=== PATIENT | male | born 1950 | race Caucasian/White ===

== ENCOUNTER 2019-12-17 15:14 | Inpatient (IN) | payer OTHER ==
[2019-12-17] VITALS: BP_SYST 175
[~2019-12-17] VITALS: Ht 172.7 cm; Wt 90.3 kg
[2019-12-17 15:40] VITALS: BP_SYST 141
[2019-12-17] MEDS ORDERED: MORPHINE 4 MG/ML INJ. SYRINGE IVP ONE (15:45)
[2019-12-17] MEDS ORDERED: THIAMINE HCL 100 MG in NS 50 ML IV ONE (15:45)
[2019-12-17] MEDS ORDERED: FOLIC ACID 5 MG/ML VIAL IV ONE (15:45)
[2019-12-17] MEDS ORDERED: NACL 0.9% 1,000 ML IV ONE ×2 (15:45→17:00)
--- NOTE | 2019-12-17 15:45 | NUR ---
Patient to ER bed 6 to gown for evaluation. Side rails up. Report given to Leatha CASTELLANO.
--- NOTE | 2019-12-17 15:46 | NUR ---
# 20 gauge angiocath placed to left AC. Use of asceptic technique. Opsite placed over site. Blood return noted. Blood for lab drawn from site. Flushed with 10 cc of normal saline. No evidence of infiltration noted. Patient tolerated well.
--- NOTE | 2019-12-17 15:46 | NUR ---
Patient presents to ER C/O right thigh pain. Patent A&Ox3, BIB family with c/o alcohol abuse, skin pink and warm, denies N/V/D pain 07/11. Per niece, patient fell Saturday in [place] and arrive to [place] today, pt unable to abuses alcohol; pt has hx of DM &HTN.
--- NOTE | 2019-12-17 15:50 | NUR ---
MICHAEL Bojorquez at bedside examining patient.
--- NOTE | 2019-12-17 16:00 | NUR ---
Per family pt noncomplaint w/meds and no f/u with PMD x 4yrs.
[2019-12-17 16:05] LABS: BASOPHILS % (AUTO) 0.7 % (0.0-2.0); EOSINOPHILS # (AUTO) 0.2 K/uL (0.0-0.4); EOSINOPHILS % (AUTO) 3.6 % (0.0-4.0); HEMATOCRIT 42.3 % (36-54); HEMOGLOBIN 14.5 g/dL (14.0-18.0); LYMPHOCYTES # (AUTO) 1.6 K/uL (1.0-5.5); LYMPHOCYTES % (AUTO) 29.6 % (20.5-51.5); MEAN CORPUSCULAR HEMOGLOBIN 32 pg (27-31); MEAN CORPUSCULAR HGB CONC 34 % (32-36); MEAN CORPUSCULAR VOLUME 93 fL (79.0-98.0); MONOCYTES # (AUTO) 0.5 K/uL (0.0-1.0); MONOCYTES % (AUTO) 8.6 % (1.7-9.3); NEUTROPHILS # (AUTO) 3.1 K/uL (1.8-7.7); NEUTROPHILS % (AUTO) 57.5 % (40.0-70.0); PLATELET COUNT (AUTO) 174 K/uL (130-430); RED BLOOD CELL COUNT(AUTO) 4.53 MIL/uL (4.2-6.2); RED CELL DISTRIBUTION WIDTH 14.8 % (9.0-15.0); WHITE BLOOD COUNT (AUTO) 5.4 K/uL (4.8-10.8)
[2019-12-17 16:22] LABS: ANION GAP 11 (5-15); CALCIUM 8.6 mg/dL (8.4-11.0); CHLORIDE 102 mmol/L (98-107); CREATININE 1.19 mg/dL (0.55-1.30); GLUCOSE 140 mg/dL (70-99); POTASSIUM 3.6 mmol/L (3.5-5.1); SODIUM SERUM 138 mmol/L (136-145); UREA NITROGEN, BLOOD 40 mg/dL (8-21)
[2019-12-17] MEDS ORDERED: THIAMINE HCL 100 MG/ML VIAL ONE (16:23)
[2019-12-17 16:29] LABS: ALANINE AMINOTRANSFERASE 35 U/L (12-78); ALBUMIN 3.4 g/dL (3.4-4.8); ASPARTATE AMINOTRANSFERASE 34 U/L (10-37); PHOSPHORUS 3.7 mg/dL (2.7-4.5)
[2019-12-17 16:31] LABS: PROTHROMBIN TIME 10.3 SECS (9.5-12.5)
[2019-12-17 17:00] LABS: ALCOHOL, BLOOD < 3 mg/dL (<10)
--- NOTE | 2019-12-17 17:25 | NUR ---
Patient will be admitted to care of DR FORD. Admitted to TELE unit. Will go to room 114A. Belongings list completed. Complete and up to date summary report printed. SBAR report to be given at bedside with opportunity for questions. Transfer to TELE via ACLS protocol. Licensed nurse present. IV present no signs or symptoms of infiltration.
[2019-12-17 17:35] VITALS: BP_SYST 155
--- NOTE | 2019-12-17 17:35 | NUR ---
admission: admitted from er on a gurney with the diagnosis of generalized weakness, dehydration. Accompanied by niece. Patient is normally oriented, but today niece said " he seems to be out of it." Oriented to room routine. Call light within reach.
[2019-12-17 18:07] LABS: BARBITURATE, URINE NEGATIVE (NEG <=200); BENZODIAZEPINE, URINE NEGATIVE (NEG <=150); CANNABINOID, URINE NEGATIVE (NEG <=50); COCAINE, URINE NEGATIVE (NEG <=150); METHAMPHETAMINES SCREEN,URINE NEGATIVE (NEG <=500); OPIATE, URINE NEGATIVE (NEG <=100); PHENCYCLIDINE SCREEN,URINE NEGATIVE (NEG <=25); UR TRICYCLIC ANTIDEPRESSANTS NEGATIVE (NEG <=300); URINE AMPHETAMINE NEGATIVE (NEG <=500); URINE METHADONE NEGATIVE (NEG <=200); URINE OXYCODONE SCREEN NEGATIVE (NEG <=100); URINE PROPOXYPHENE SCREEN NEGATIVE (NEG <=300)
[2019-12-17] MEDS ORDERED: FLU VACC TS2019(65UP)/MF59C/PF 45 MCG/0.5 ML SYRINGE I.M. PRN (18:15)
--- NOTE | 2019-12-17 18:38 | NUR ---
Closing note patient resting in bed at this time, no complaints of pain. IV patent, intact, and infusing fluids as ordered. No adverse side effects noted. No infiltration noted. On safety and aspiration precautions, HOB kept elevated, bed alarm on, 3 side rails up, call light within reach. patient in stable condition. Family at bedside. All needs met.
--- NOTE | 2019-12-17 19:20 | NUR ---
INITIAL ASSESSMENT PATIENT IS LAYING IN BED AND STABLE. NO S/S OF RESPIRATORY DISTRESS NOTED. FAMILY IS BY BEDSIDE. PLAN OF CARE WAS DISCUSSED WITH FAMILY AND PATIENT AT THIS TIME. PATIENT SUCCESSFULLY DEMONSTRATES USAGE OF CALL LIGHT AT THIS TIME. BED IS LOCKED, ALARMED, AND AT THE LOWEST POSITION. FALL, SAFETY, ASPIRATION, AND RESPIRATORY PRECAUTIONS WILL BE IN PLACE THROUGHOUT THE NIGHT. WILL CONTINUE TO MONITOR.
[2019-12-17 19:28] LABS: BILIRUBIN,URINE 1+ (NEGATIVE); BLOOD, URINE NEGATIVE (NEGATIVE); CLARITY/URINE SLIGHTLY HAZY (CLEAR); COLOR,URINE YELLOW (YELLOW); GLUCOSE,URINE NEGATIVE (NEGATIVE); KETONES,URINE NEGATIVE (NEGATIVE); LEUKOCYTE ESTERASE ,URINE NEGATIVE (NEGATIVE); NITRITE, URINE NEGATIVE (NEGATIVE); PH,URINE 5.5 (5.0-8.0); PROTEIN URINE 2+ (NEGATIVE)
[2019-12-17 19:29] LABS: UROBILINOGEN,URINE 0.2 (0.2-1.0)
[2019-12-17 19:33] LABS: BACTERIA,URINE FEW /HPF (None Seen); RBC,URINE NONE SEEN /HPF (0-3); WBC,URINE 0-3 /HPF (0-3)
[2019-12-17 19:34] LABS: MUCUS,URINE None Seen /LPF (None Seen); URINE AMORPHOUS URATE 3+ /HPF (None Seen)
[2019-12-17 19:40] VITALS: BP_SYST 143
[2019-12-17] MEDS: NACL 0.9% 1,000 ML IV SCH (21:18)
--- NOTE | 2019-12-17 21:20 | NUR ---
RE-ORIENTED PATIENT/ROUNDS PATIENT IS CONFUSED AT THIS TIME. PATIENT IS TRYING TO PULL OUT LINES AND TRYING TO GET OUT OF BED W/O ASSIST. AOX1. RE-ORIENTED PATIENT AT THIS TIME. PATIENT FAMILY IS NO LONGER BY BEDSIDE. PATIENT IS OTHERWISE STABLE. NO S/S OF RESPIRATORY DISTRESS NOTED. CALL LIGHT IN REACH. BED IS LOCKED, ALARMED, AND AT THE LOWEST POSITION. WILL CONTINUE TO MONITOR.
[2019-12-17] MEDS ORDERED: TAMSULOSIN HCL 0.4 MG CAP PO SCH (22:30)
--- NOTE | 2019-12-17 22:40 | NUR ---
AGITATED PATIENT/DR. FORD AT BEDSIDE PATIENT IS GETTING AGITATED AT THIS TIME. PATIENT IS TRYING TO TAKE OFF HIS CLOTHES AND PULLS ON HIS LINES. RE-ORIENTATION FAILED AT THIS TIME. DR. FORD AT BEDSIDE AND ORDERED RECEIVED. WILL FOLLOW THROUGH WITH ORDERS AND MONITOR PATIENT. PATIENT SHOWS NO S/S OF RESPIRATORY DISTRESS AT THIS TIME. BED IS LOCKED, ALARMED, AND AT THE LOWEST POSITION.
[2019-12-17] MEDS ORDERED: ASPIRIN 81 MG TABLET(ECOTRIN) PO ONE (22:45)
[2019-12-17] MEDS ORDERED: HALOPERIDOL LACTATE 5 MG/ML VIAL IM PRN (22:45)
[2019-12-17] MEDS ORDERED: INSULIN REGULAR, HUMAN 100 UNITS/ML, 10 ML VIAL (humuLIN R) SUBCUT PRN (22:45)
[2019-12-17] MEDS ORDERED: DEXTROSE 50% JECT 50 ML DISP.SYRIN IVP PRN (22:45)
[2019-12-17] MEDS ORDERED: LORazepam 2 MG/ML VIAL ONE (22:49)
--- NOTE | 2019-12-17 22:50 | NUR ---
FAMILY BY BEDSIDE FAMILY IS AT BEDSIDE AT THIS TIME. PATIENT IS RE-ORIENTED. UPDATED FAMILY ON PATIENTS STATUS AT THIS TIME. PATIENT IS STABLE. NO S/S OF RESPIRATORY DISTRESS NOTED. CALL LIGHT IN REACH. BED IS LOCKED, ALARMED, AND AT THE LOWEST POSITION. WILL CONTINUE TO MONITOR.
[2019-12-17] MEDS: THIAMINE HCL 100 MG TABLET PO SCH (23:47)
[2019-12-17] MEDS: chlordiazePOXIDE HCL 25 MG CAPSULE PO SCH (23:48)
[2019-12-17] MEDS: FAMOTIDINE 20 MG TABLET PO SCH (23:48)
[2019-12-18] MEDS: cloNIDine HCL 0.1 MG TABLET PO PRN ×2 (00:06→17:25)
--- NOTE | 2019-12-18 00:50 | NUR ---
ROUNDING PATIENT FAMILY IS BY BEDSIDE. PATIENT IS STABLE AND TALKING TO FAMILY AT THIS TIME. NO S/S OF RESPIRATORY DISTRESS NOTED. CALL LIGHT IN REACH. BED IS LOCKED, ALARMED, AND AT THE LOWEST POSITION. WILL CONTINUE TO MONITOR.
--- NOTE | 2019-12-18 02:25 | NUR ---
ROUNDING PATIENT IS STABLE AND SLEEPING IN BED. FAMILY IS BY BEDSIDE. NO S/S OF RESPIRATORY DISTRESS NOTED. CALL LIGHT IN REACH. BED IS LOCKED, ALARMED, AND AT THE LOWEST POSITION. WILL CONTINUE TO MONITOR.
[2019-12-18] MEDS: NACL 0.9% 1,000 ML IV SCH ×3 (02:33→20:00)
--- NOTE | 2019-12-18 04:17 | NUR ---
Consultation Paged Reason for Consultation: ALOC Was consult called: Y Person who was notified: Sonya Consulting Physician: Rudy Downs Senior Net Architect Ordering Physician: Dr. Acevedo
--- NOTE | 2019-12-18 04:19 | NUR ---
Consultation Paged Reason for Consultation: Alcoholism Was consult called: Y Person who was notified: Sonya Consulting Physician: Dr. Goncalves, Said Potter Or Ceramic Artist Ordering Physician: Dr. Acevedo Face Sheet was faxed to [phone]
--- NOTE | 2019-12-18 04:25 | NUR ---
ROUNDING PATIENT IS SLEEPING IN BED AND STABLE. FAMILY IS BY BEDSIDE. NO S/S OF RESPIRATORY DISTRESS NOTED FOR THE PATIENT. BED IS LOCKED, ALARMED, AND AT THE LOWEST POSITION. WILL CONTINUE TO MONITOR.
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
--- NOTE | 2019-12-18 06:21 | NUR ---
CLOSING NOTES PATIENT IS LAYING IN BED AND STABLE. NO S/S OF RESPIRATORY DISTRESS NOTED. FAMILY IS BY BEDSIDE. CALL LIGHT IN REACH. BED IS LOCKED, ALARMED, AND AT THE LOWEST POSITION. FALL, SAFETY, ASPIRATION, AND RESPIRATORY PRECAUTIONS HAS BEEN IN PLACE THROUGHOUT THE SHIFT. WILL CONTINUE TO MONITOR UNTIL REPORT IS GIVEN TO AM NURSE BY BEDSIDE.
--- NOTE | 2019-12-18 07:04 | NUR ---
Nutrition Update Zohaib Scale 17 noted. Pt admitted for generalized weakness and dehydration. Diet: regular BMI: 30.3 kg/m2 RD to follow per nutrition care standards.
--- NOTE | 2019-12-18 07:30 | NUR ---
Opening note Patient resting in bed at this time, A/ox2, no complaints of pain. Iv patent, intact, and infusing fluids as ordered. No adverse side effects. no infiltration noted. patient NPO at this time, awaiting abdominal ultrasound. On safety and aspiration precautions, HOb kept elevated, 3 side rails up, call light within reach. Patient in stable condition. Will continue to monitor.
[2019-12-18 07:37] LABS: BASOPHILS % (AUTO) 0.6 % (0.0-2.0); EOSINOPHILS # (AUTO) 0.2 K/uL (0.0-0.4); EOSINOPHILS % (AUTO) 4.5 % (0.0-4.0); HEMATOCRIT 36.3 % (36-54); HEMOGLOBIN 12.3 g/dL (14.0-18.0); LYMPHOCYTES # (AUTO) 1.1 K/uL (1.0-5.5); LYMPHOCYTES % (AUTO) 26.3 % (20.5-51.5); MEAN CORPUSCULAR HEMOGLOBIN 32 pg (27-31); MEAN CORPUSCULAR HGB CONC 34 % (32-36); MEAN CORPUSCULAR VOLUME 94 fL (79.0-98.0); MONOCYTES # (AUTO) 0.4 K/uL (0.0-1.0); MONOCYTES % (AUTO) 8.5 % (1.7-9.3); NEUTROPHILS # (AUTO) 2.5 K/uL (1.8-7.7); NEUTROPHILS % (AUTO) 60.1 % (40.0-70.0); PLATELET COUNT (AUTO) 141 K/uL (130-430); RED BLOOD CELL COUNT(AUTO) 3.86 MIL/uL (4.2-6.2); RED CELL DISTRIBUTION WIDTH 14.6 % (9.0-15.0); WHITE BLOOD COUNT (AUTO) 4.2 K/uL (4.8-10.8)
[2019-12-18 08:00] VITALS: BP_SYST 150
[2019-12-18 08:05] LABS: ALANINE AMINOTRANSFERASE 26 U/L (12-78); ALBUMIN 2.6 g/dL (3.4-4.8); ANION GAP 8 (5-15); ASPARTATE AMINOTRANSFERASE 29 U/L (10-37); CHLORIDE 108 mmol/L (98-107); CREATININE 0.81 mg/dL (0.55-1.30); FREE T4 (FREE THYROXINE) 2.1 ng/dl (0.8-1.5); GLUCOSE 109 mg/dL (70-99); POTASSIUM 3.1 mmol/L (3.5-5.1); SODIUM SERUM 139 mmol/L (136-145); THYROID STIMULATING HORMONE 0.08 uIu/mL (0.36-3.74); TOTAL BILIRUBIN 0.7 mg/dL (0.0-1.0); UREA NITROGEN, BLOOD 30 mg/dL (8-21)
[2019-12-18 08:37] LABS: BILIRUBIN,URINE NEGATIVE (NEGATIVE); BLOOD, URINE NEGATIVE (NEGATIVE); CLARITY/URINE CLEAR (CLEAR); COLOR,URINE YELLOW (YELLOW); GLUCOSE,URINE NEGATIVE (NEGATIVE); KETONES,URINE NEGATIVE (NEGATIVE); LEUKOCYTE ESTERASE ,URINE NEGATIVE (NEGATIVE); NITRITE, URINE NEGATIVE (NEGATIVE); PROTEIN URINE TRACE (NEGATIVE); UROBILINOGEN,URINE 0.2 (0.2-1.0)
[2019-12-18 08:45] LABS: CHOLESTEROL 88 mg/dL (<200); HDL CHOLESTEROL 28 mg/dL (>45); LDL CHOLESTEROL 53 mg/dL (<100); TRIGLYCERIDES 59 mg/dL (30-150)
[2019-12-18 08:50] LABS: BACTERIA,URINE FEW /HPF (None Seen); RBC,URINE 0-3 /HPF (0-3); WBC,URINE 0-3 /HPF (0-3)
--- NOTE | 2019-12-18 09:00 | NUR ---
breakfast/ medications Abdominal ultrasound complete, patient sitting up in bed at this time, eating breakfast. tolerating well. No nausea, no vomiting.
[2019-12-18] MEDS: chlordiazePOXIDE HCL 25 MG CAPSULE PO SCH ×4 (09:03→21:22)
[2019-12-18] MEDS: FAMOTIDINE 20 MG TABLET PO SCH ×2 (09:04→21:22)
[2019-12-18] MEDS: FOLIC ACID 1 MG TABLET PO SCH (09:04)
[2019-12-18] MEDS: TAMSULOSIN HCL 0.4 MG CAP PO SCH (09:04)
[2019-12-18] MEDS: THIAMINE HCL 100 MG TABLET PO SCH (09:04)
[2019-12-18] MEDS: ASPIRIN 81 MG TABLET(ECOTRIN) PO SCH (09:04)
--- NOTE | 2019-12-18 09:05 | NUR ---
Attending md dr Acevedo was called re: ELEVATED TROPONIN. SPOKE TO TYLER.
[2019-12-18] MEDS ORDERED: POTASSIUM CHLORIDE 20 MEQ TAB.PRT.SR PO ONE (10:00)
--- NOTE | 2019-12-18 10:14 | NUR ---
Cardiac consult called: for Dr. Carvalho, regarding elevated troponin, ordered by Dr. Acevedo, spoke with Tierney.
[2019-12-18] MEDS: LORazepam 2 MG/ML VIAL IVP PRN ×3 (11:01→21:22)
--- NOTE | 2019-12-18 12:00 | NUR ---
MRI Patient left for MRI in [facility] in stable condition.
--- NOTE | 2019-12-18 12:45 | NUR ---
MRI completed Patient returned from MRI in stable condition. Lunch tray provided.
[2019-12-18 12:51] VITALS: BP_SYST 143
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
--- NOTE | 2019-12-18 14:30 | NUR ---
rounds Patient using urinal. skin care provided. no other needs at this time.
--- NOTE | 2019-12-18 16:30 | NUR ---
consent for CT Consent for CT signed by daughter at bedside. Patient to have CT scan today. patient NPO since 1300.
[2019-12-18 16:46] VITALS: BP_SYST 174
[2019-12-18] MEDS ORDERED: IOHEXOL 100 ML IV ONE (16:54)
--- NOTE | 2019-12-18 17:00 | NUR ---
CT scan patient left for CT scan in stable condition via gurney. No other needs at this time.
--- NOTE | 2019-12-18 17:19 | NUR ---
Ct scan completed CT scan completed. patient returned back to unit in stable condition.
--- NOTE | 2019-12-18 18:34 | NUR ---
closing note Patient resting in bed at this time, A/ox2, no complaints of pain. Iv patent, intact, and infusing fluids as ordered. No adverse side effects. no infiltration noted. On safety and aspiration precautions, HOB kept elevated, 3 side rails up, call light within reach. Patient in stable condition. All needs met.
[2019-12-19] MEDS: cloNIDine HCL 0.1 MG TABLET PO PRN ×2 (00:01→20:03)
--- NOTE | 2019-12-19 00:42 | NUR ---
Patient b/p elevated. Prn given. No acute distress noted. Turned repositioned q2. Will continue to monitor.
[2019-12-19] MEDS: NACL 0.9% 1,000 ML IV SCH ×3 (06:33→22:15)
[2019-12-19 08:00] VITALS: BP_SYST 135
--- NOTE | 2019-12-19 08:00 | NUR ---
A/ox1, somnolent. No infiltration noted. SR on monitor. Daughter at bedside. Call light in place, bed locked at the lowest position, 3 side rails up, call light within reach. Will continue to monitor.
[2019-12-19 08:01] LABS: ANION GAP 9 (5-15); CALCIUM 8.1 mg/dL (8.4-11.0); CHLORIDE 108 mmol/L (98-107); CREATININE 0.84 mg/dL (0.55-1.30); GLUCOSE 84 mg/dL (70-99); POTASSIUM 3.3 mmol/L (3.5-5.1); SODIUM SERUM 138 mmol/L (136-145); UREA NITROGEN, BLOOD 21 mg/dL (8-21)
[2019-12-19] MEDS: ASPIRIN 81 MG TABLET(ECOTRIN) PO SCH (08:14)
[2019-12-19] MEDS: chlordiazePOXIDE HCL 25 MG CAPSULE PO SCH ×2 (08:15→13:00)
[2019-12-19] MEDS: TAMSULOSIN HCL 0.4 MG CAP PO SCH (08:15)
[2019-12-19] MEDS: FAMOTIDINE 20 MG TABLET PO SCH ×2 (08:15→20:03)
[2019-12-19] MEDS: FOLIC ACID 1 MG TABLET PO SCH (08:16)
[2019-12-19] MEDS: THIAMINE HCL 100 MG TABLET PO SCH (08:16)
--- NOTE | 2019-12-19 11:30 | NUR ---
Blood sugar 98. No coverage needed.
[2019-12-19 12:26] VITALS: BP_SYST 136
--- NOTE | 2019-12-19 13:58 | NUR ---
Dr. Acevedo is called in regards to patient's current status. He states he will come to see patient.
[2019-12-19] MEDS ORDERED: POTASSIUM CHLORIDE 20 MEQ TAB.PRT.SR PO ONE (14:15)
[2019-12-19 16:11] VITALS: BP_SYST 150
--- NOTE | 2019-12-19 16:33 | NUR ---
BLOOD SUGAR 132. NO COVERAGE NEEDED.
[2019-12-19 17:06] LABS: % FREE PSA 38.2 % (.); FREE PSA 0.42 ng/mL; PROSTATE SPECIFIC AG TOTAL 1.1 ng/mL (0.0-4.0)
[2019-12-19] MEDS: QUEtiapine FUMARATE 25 MG TABLET PO SCH (17:24)
--- NOTE | 2019-12-19 18:20 | NUR ---
Patient is resting, no signs of distress noted. Patient's still sleepy, although easily arousable.
--- NOTE | 2019-12-19 19:05 | NUR ---
OPENING NOTES Bedside report received from dayshift nurse. Patient received lying in bed, eyes closed, resting. No s/s of acute distress noted. Breathing is even and unlabored. HOB raised. IVF infusing well. Patient's daughter, Caprice, present at bedside. Call light with patient. Bed alarm on. Will continue to monitor.
[2019-12-19 20:00] VITALS: BP_SYST 194
--- NOTE | 2019-12-19 20:03 | NUR ---
HIGH BLOOD PRESSURE BP at 194/105 at this time. Catapres administered per PRN order. Will continue to monitor and reassess.
[2019-12-19 22:10] VITALS: BP_SYST 138
--- NOTE | 2019-12-19 22:10 | NUR ---
REASSESSED BP BP at 138/78 at this time. Patient in bed, sleeping. No s/s of acute distress noted. Breathing is even and unlabored. IVF Infusing well. Call light with patient. Bed alarm on. Will continue to monitor.
--- NOTE | 2019-12-20 | NUR ---
ROUNDS Patient in bed asleep. No s/s of acute distress noted. Breathing even and unlabored. IVF infusing well. Call light with patient. Bed alarm on. Will continue to monitor.
--- NOTE | 2019-12-20 02:00 | NUR ---
ROUNDS Patient in bed asleep at this time. No signs of discomfort noted. Chest rise and fall even bilaterally. IVF infusing well. Call light with patient. Bed alarm on. Will continue to monitor.
[2019-12-20 02:22] VITALS: BP_SYST 154
[2019-12-20] MEDS: cloNIDine HCL 0.1 MG TABLET PO PRN ×4 (06:04→21:17)
--- NOTE | 2019-12-20 06:52 | NUR ---
CLOSING NOTES/HIGH BP Patient in bed sleeping at this time. No s/s of acute distress noted. Breathing even and unlabored. IVF infusing well. BP high, Catapres administered per PRN orders. Will endorse to dayshift. All needs met. Fall and safety precautions maintained throughout shift. Will continue to monitor.
[2019-12-20] MEDS: FAMOTIDINE 20 MG TABLET PO SCH ×2 (08:00→21:15)
[2019-12-20] MEDS: THIAMINE HCL 100 MG TABLET PO SCH (08:00)
[2019-12-20] MEDS: TAMSULOSIN HCL 0.4 MG CAP PO SCH (08:01)
[2019-12-20] MEDS: FOLIC ACID 1 MG TABLET PO SCH (08:01)
[2019-12-20] MEDS: POTASSIUM CHLORIDE 20 MEQ TAB.PRT.SR PO SCH (08:01)
[2019-12-20] MEDS: ASPIRIN 81 MG TABLET(ECOTRIN) PO SCH (08:01)
[2019-12-20 08:42] LABS: BASOPHILS % (AUTO) 0.5 % (0.0-2.0); EOSINOPHILS # (AUTO) 0.1 K/uL (0.0-0.4); HEMATOCRIT 38.5 % (36-54); HEMOGLOBIN 13.3 g/dL (14.0-18.0); LYMPHOCYTES # (AUTO) 1.4 K/uL (1.0-5.5); LYMPHOCYTES % (AUTO) 28.5 % (20.5-51.5); MEAN CORPUSCULAR HEMOGLOBIN 32 pg (27-31); MEAN CORPUSCULAR HGB CONC 35 % (32-36); MEAN CORPUSCULAR VOLUME 93 fL (79.0-98.0); MONOCYTES # (AUTO) 0.3 K/uL (0.0-1.0); MONOCYTES % (AUTO) 7.2 % (1.7-9.3); NEUTROPHILS # (AUTO) 2.9 K/uL (1.8-7.7); NEUTROPHILS % (AUTO) 60.8 % (40.0-70.0); PLATELET COUNT (AUTO) 148 K/uL (130-430); RED BLOOD CELL COUNT(AUTO) 4.16 MIL/uL (4.2-6.2); RED CELL DISTRIBUTION WIDTH 14.4 % (9.0-15.0); WHITE BLOOD COUNT (AUTO) 4.8 K/uL (4.8-10.8)
[2019-12-20 08:59] LABS: INR 1.1 (0.80-1.20); PROTHROMBIN TIME 10.9 SECS (9.5-12.5)
[2019-12-20 09:06] LABS: ALANINE AMINOTRANSFERASE 29 U/L (12-78); ALBUMIN 2.6 g/dL (3.4-4.8); ANION GAP 10 (5-15); ASPARTATE AMINOTRANSFERASE 23 U/L (10-37); CALCIUM 8.1 mg/dL (8.4-11.0); CHLORIDE 107 mmol/L (98-107); GLUCOSE 101 mg/dL (70-99); POTASSIUM 3.3 mmol/L (3.5-5.1); SODIUM SERUM 139 mmol/L (136-145); TOTAL BILIRUBIN 0.8 mg/dL (0.0-1.0); UREA NITROGEN, BLOOD 16 mg/dL (8-21)
--- NOTE | 2019-12-20 09:20 | NUR ---
Patient is resting; confused but not agitated. Able to speak to family members but unable to discern time and place.
--- NOTE | 2019-12-20 11:00 | NUR ---
Blood sugar 107. No coverage needed.
--- NOTE | 2019-12-20 11:45 | NUR ---
FOLLOW UP PSYCH CONSULT FOR SPOKE TO HO.
[2019-12-20 12:17] VITALS: BP_SYST 152
[2019-12-20] MEDS: NACL 0.9% 1,000 ML IV SCH ×2 (12:33→21:17)
[2019-12-20 16:18] VITALS: BP_SYST 161
--- NOTE | 2019-12-20 17:00 | NUR ---
Patient's blood sugar 101. No coverage needed.
--- NOTE | 2019-12-20 18:00 | NUR ---
Patient declined dinner, but is willing to drink a bottle of Glucerna.
[2019-12-20] MEDS: QUEtiapine FUMARATE 25 MG TABLET PO SCH (18:13)
[2019-12-20 20:00] VITALS: BP_SYST 152
[2019-12-20] MEDS: LORazepam 2 MG/ML VIAL IVP PRN (21:27)
[2019-12-21 00:54] VITALS: BP_SYST 154
--- NOTE | 2019-12-21 06:38 | NUR ---
PATIENT IN BED. TURNED REPOSITIONED Q2. NO ACUTE DISTRESS NOTED. FAMILY AT THE BEDSIDE. WILL CONTINUE TO MONITOR.
[2019-12-21 07:34] LABS: BASOPHILS % (AUTO) 0.7 % (0.0-2.0); EOSINOPHILS # (AUTO) 0.1 K/uL (0.0-0.4); EOSINOPHILS % (AUTO) 2.4 % (0.0-4.0); HEMATOCRIT 38.9 % (36-54); HEMOGLOBIN 13.2 g/dL (14.0-18.0); LYMPHOCYTES # (AUTO) 1.3 K/uL (1.0-5.5); LYMPHOCYTES % (AUTO) 25.7 % (20.5-51.5); MEAN CORPUSCULAR HEMOGLOBIN 32 pg (27-31); MEAN CORPUSCULAR HGB CONC 34 % (32-36); MEAN CORPUSCULAR VOLUME 93 fL (79.0-98.0); MONOCYTES # (AUTO) 0.4 K/uL (0.0-1.0); MONOCYTES % (AUTO) 7.9 % (1.7-9.3); NEUTROPHILS # (AUTO) 3.3 K/uL (1.8-7.7); NEUTROPHILS % (AUTO) 63.3 % (40.0-70.0); PLATELET COUNT (AUTO) 157 K/uL (130-430); RED BLOOD CELL COUNT(AUTO) 4.17 MIL/uL (4.2-6.2); RED CELL DISTRIBUTION WIDTH 14.2 % (9.0-15.0); WHITE BLOOD COUNT (AUTO) 5.2 K/uL (4.8-10.8)
[2019-12-21 08:00] VITALS: BP_SYST 147
--- NOTE | 2019-12-21 08:00 | NUR ---
initial notes rec patient asleep but arousable to stimuli. with periods of confusion. ivf infusing well on the l ac. no infiltration noted. resp easy and unlabored. no osb noted.bed to the lowest position and side rails up and locked. family at bedside. will continue to monitor patient.
[2019-12-21 08:04] LABS: ANION GAP 6 (5-15); CALCIUM 8.2 mg/dL (8.4-11.0); CHLORIDE 109 mmol/L (98-107); CREATININE 0.97 mg/dL (0.55-1.30); GLUCOSE 110 mg/dL (70-99); POTASSIUM 3.6 mmol/L (3.5-5.1); SODIUM SERUM 138 mmol/L (136-145); UREA NITROGEN, BLOOD 16 mg/dL (8-21)
[2019-12-21] MEDS: TAMSULOSIN HCL 0.4 MG CAP PO SCH (09:57)
[2019-12-21] MEDS: FAMOTIDINE 20 MG TABLET PO SCH ×2 (09:57→20:54)
[2019-12-21] MEDS: FOLIC ACID 1 MG TABLET PO SCH (09:57)
[2019-12-21] MEDS: THIAMINE HCL 100 MG TABLET PO SCH (09:57)
[2019-12-21] MEDS: POTASSIUM CHLORIDE 20 MEQ TAB.PRT.SR PO SCH (09:57)
[2019-12-21] MEDS: ASPIRIN 81 MG TABLET(ECOTRIN) PO SCH (09:57)
[2019-12-21] MEDS: NACL 0.9% 1,000 ML IV SCH ×2 (09:58→21:00)
--- NOTE | 2019-12-21 10:00 | NUR ---
rounds due meds given and jon well. sleeps at intervals and family at bedside. call light withn reached. resting comfortably/
--- NOTE | 2019-12-21 12:00 | NUR ---
bisi no hypo hyperglycemic reaction noted. family at bedside and waiting for dr akers.
[2019-12-21 12:45] VITALS: BP_SYST 141
--- NOTE | 2019-12-21 13:52 | NUR ---
rounds seen by dr akers at bedside and spoke with family. denies pain and sleeps at intervals.
--- NOTE | 2019-12-21 16:00 | NUR ---
rounds sleeps at intervals but confused when awake. bed alarm is activated. no sob noted.
[2019-12-21 16:57] VITALS: BP_SYST 132
[2019-12-21] MEDS: QUEtiapine FUMARATE 25 MG TABLET PO SCH (18:29)
--- NOTE | 2019-12-21 18:30 | NUR ---
closing notes resting comfortably. pt was downgrade. no sob noted. bed to the lowest position and side rails up and locked.
[2019-12-21 19:00] VITALS: BP_SYST 162
[2019-12-21] MEDS ORDERED: CHOLECALCIFEROL (VITAMIN D3) 2,000 UNIT TABLET PO ONE (19:00)
--- NOTE | 2019-12-21 19:15 | NUR ---
change of shift.pt.presents quiescent affect;calm,family@bedside.pt.presents iv access intact;patent;iv fluids infusing.pt.presents bedrest activity status.genral status stable.respiratory status stable;unlabored@room air.call light/telephone w/in reach of the pt.
[2019-12-21 20:00] VITALS: BP_SYST 162
--- NOTE | 2019-12-21 20:00 | NUR ---
pt.assessed.v/s assessed;b/p values presented elevated status:to review emar med-list re;b/p medications.scheduled/prn. pt.presents loc;confused.language barrier extant.pt's primary language;icelandic.to attend to the pt;icelandic.iv access intact;patent;iv fluids infusing.pt.assessed for cleanliness.pt.repositioned.general status stable.respiratory status stable; unlabored :02-sat=98%@room air.call light/telephonme placed w/in reach of the pt.
--- NOTE | 2019-12-21 20:30 | NUR ---
i have assessed the blood glucose;value;121mg/dl.
[2019-12-21] MEDS: cloNIDine HCL 0.1 MG TABLET PO PRN (20:55)
--- NOTE | 2019-12-21 21:00 | NUR ---
2100p medications administered .i have administered clonidine;0.1mg re;b/p.to assess the efficacy of the clonidine.
--- NOTE | 2019-12-21 22:00 | NUR ---
pt.assessed.pt.assessed for cleanliness.pt.cleaned.pt.repositioned.iv access intact patent;iv fluids infusing. general status stable.respiratory status stable;unlabored.call light/telephone placed w/in reach of the pt. Addendum: 12/22/19 at 0419 by Leonid Taylor RN b/p assessed post the administration:clonidine:0.1mg po.b/p value w/in normal limits.
[2019-12-22] VITALS: BP_SYST 135
--- NOTE | 2019-12-22 | NUR ---
pt.assessed.v/s assessed:values w/in normal limits.b/p values noted w/in normal limits.pt.presents affect;restless;agitated. pt.assessed for cleanliness.pt.repositioned.iv access intact;patent.general status stable.respiratory status stable;unlabored.call light/telephone placed w/in reach of the pt.
--- NOTE | 2019-12-22 00:30 | NUR ---
pt.assessed pt.presents affect;restless/agitated.i have administered ativan:0.5mg ivp.to assess the efficacy of the medication.
[2019-12-22] MEDS: LORazepam 2 MG/ML VIAL IVP PRN ×3 (00:41→22:46)
--- NOTE | 2019-12-22 01:00 | NUR ---
pt.assessed post the administration of ativan:0.5mg.pt.presents quiescent affect;calm,somnolent.
--- NOTE | 2019-12-22 02:00 | NUR ---
pt.assessed.pt.presents quiescent affect;calm,somnolent.pt.assessed for cleanliness.pt.repositioned.iv fluids access intact;patent iv fluids infusing.general status stable.respiratory status stable.call light/telephone placed w/in reach of the pt.
--- NOTE | 2019-12-22 04:00 | NUR ---
pt.assessed.pt.presents quiescent affect;calm,somnolent.pt.assessed for cleanliness.pt.repositioned.iv access intact;patent iv fluids infusing.general status stable.respiratory status stable;unlabored.call light/telephone placed w/in reach of the pt.
[2019-12-22] MEDS: NACL 0.9% 1,000 ML IV SCH ×2 (04:44→14:41)
--- NOTE | 2019-12-22 06:30 | NUR ---
pt.assessed pt.assessed for cleanliness.pt.cleaned.pt.repositioned.i assessed the blood glucose;value;86mg/dl.i administered juice.pt.presents iv access intact;patent.iv fluids infusing.general status stable.respiratory status stable;unlabored.iv access intact patent ;iv fluids infusing.call light/telephone placed w/in reach of the pt.
--- NOTE | 2019-12-22 07:30 | NUR ---
OPENING NOTES: RECEIVED PATIENT FROM MARBLE CUTTER NURSE. PATIENT IS AWAKE AND ALERT x2 LAYING DOWN IN BED. PATIENT DENIES ANY PAIN AT THE MOMENT. PATIENT IS TOLERATING OXYGEN AT ROOM AIR WITH NO SIGNS OF DISTRESS OR SHORTNESS OF BREATH NOTED. IV SITES ARE INTACT WITH NO SIGNS OF INFILTRATION NOTED. PATIENT IN STABLE CONDITION. SAFETY, FALL, AND ASPIRATION PRECAUTIONS ARE IN PLACE. BED IS LOCKED IN LOWEST POSITION WITH CALL LIGHT IN REACH. WILL CONTINUE OT MONITOR PATIENT FOR ANY CHANGES.
[2019-12-22 08:22] VITALS: BP_SYST 171
[2019-12-22] MEDS: POTASSIUM CHLORIDE 20 MEQ TAB.PRT.SR PO SCH (09:09)
[2019-12-22] MEDS: THIAMINE HCL 100 MG TABLET PO SCH (09:09)
[2019-12-22] MEDS: FAMOTIDINE 20 MG TABLET PO SCH ×2 (09:09→20:45)
[2019-12-22] MEDS: TAMSULOSIN HCL 0.4 MG CAP PO SCH (09:10)
[2019-12-22] MEDS: FOLIC ACID 1 MG TABLET PO SCH (09:10)
[2019-12-22] MEDS: CHOLECALCIFEROL (VITAMIN D3) 2,000 UNIT TABLET PO SCH (09:10)
[2019-12-22] MEDS: ASPIRIN 81 MG TABLET(ECOTRIN) PO SCH (09:10)
--- NOTE | 2019-12-22 10:15 | NUR ---
RN ROUNDS: PATIENT IS AWAKE AND ALERT x2 LAYING DOWN IN BED. NO SIGNS OF DISTRESS OR SHORTNESS OF BREATH NOTED. FAMILY AT BEDSIDE. NO SIGNS OF DISTRESS OR SHORTNESS OF BREATH NOTED. PATIENT IN STABLE CONDITION. WILL CONTINUE TO MONITOR PATIENT FOR ANY CHANGES.
--- NOTE | 2019-12-22 10:30 | NUR ---
Nutrition Update Zohaib Scale 14 noted. Pt admitted for generalized weakness and dehydration. Diet: regular, CCHO standard carb-60 gm, Glucerna TID BMI: 30.3 kg/m2 RD to follow per nutrition care standards.
--- NOTE | 2019-12-22 11:05 | NUR ---
PHYSICAL THERAPY CO-SIGN The Physical Therapy Progress Notes documented by Vending Machine Operator have been reviewed. Reviewed/Co-Signed by: Erlin Marie PT Documentation Done by: YUE ARDON PTA Addendum: 12/22/19 at 1106 by Erlin Marie PT Amended: Links added.
[2019-12-22 11:26] VITALS: BP_SYST 187
[2019-12-22] MEDS: cloNIDine HCL 0.1 MG TABLET PO PRN (11:36)
--- NOTE | 2019-12-22 11:48 | NUR ---
PRN BP MED GIVEN: BLOOD PRESSURE WAS 187/102. PRN CATAPRES GIVEN TO PATIENT. WILL CONTINUE TO MONITOR TO EVALUATE EFFECTIVENESS.
--- NOTE | 2019-12-22 12:00 | NUR ---
PAGED: CALLED DR. SIMPSON IN REGARDS TO CLARIFICATION ON REDOING MRI OF BRAIN. AGREED TO REDO IT. INFORMED AMELIA IN RADIOLOGY.
--- NOTE | 2019-12-22 12:15 | NUR ---
RN ROUNDS: PATIENT IS AWAKE AND ALERT x2 LAYING DOWN IN BED. FAMILY AT BEDSIDE. PATIENT DENIES ANY PAIN AT THE MOMENT. NO SIGNS OF DISTRESS OR SHORTNESS OF BREATH NOTED. PATIENT IN STABLE CONDITION. WILL CONTINUE TO MONITOR PATIENT FOR ANY CHANGES.
--- NOTE | 2019-12-22 13:30 | NUR ---
IV INSERTION: OLD IV SITES BECAME INFILTRATED. BOTH REMOVED WITH CATHETER INTACT AND NO ACTIVE BLEEDING NOTED. NEW IV SITE INSERTED IN LEFT HAND 22 G. ASEPTIC TECHNIQUE USED. PATIENT TOLERATED IT WELL. SUCCESSFUL AFTER ONE ATTEMPT. IV SITE PATENT WITH BLOOD DRAW BACK AND FLUSHES WITH NO RESISTANCE. WILL CONTINUE TO MONITOR IV SITE.
--- NOTE | 2019-12-22 14:21 | NUR ---
RN ROUNDS: PATIENT JUST GOT BROUGHT BACK FROM RADIOLOGY. NO SIGNS OF DISTRESS OR SHORTNESS OF BREATH NOTED. PATIENT WAS CLEANED AND SHEETS WERE CHANGED. PATIENT IN STABLE CONDITION. WILL CONTINUE TO MONITOR PATIENT FOR ANY CHANGES.
--- NOTE | 2019-12-22 15:31 | NUR ---
Discharge Planning: Pt has order to DC to SNF or [facility]; pt is not on a 5150 and does not have a psych evaluation. [facility] placed call to pt's dtr, Sue ([phone]); Sue states that the plan is for pt to get stronger and be able to walk. Pt's dtr is agreeable to SNF for pt; Sue states that pt's other dtr lives in [place] and a SNF near [place] would be good. [facility] will update DC process planner.
[2019-12-22 16:03] VITALS: BP_SYST 177
--- NOTE | 2019-12-22 16:27 | NUR ---
RN ROUNDS: PATIENT IS AWAKE AND ALERT x2 LAYING DOWN IN BED. PATIENT DENIES ANY PAIN AT THE MOMENT. NO SIGNS OF DISTRESS OR SHORTNESS OF BREATH NOTED. PATIENT IN STABLE CONDITION. WILL CONTINUE TO MONITOR PATIENT FOR ANY CHANGES.
[2019-12-22] MEDS: QUEtiapine FUMARATE 25 MG TABLET PO SCH (17:30)
--- NOTE | 2019-12-22 18:27 | NUR ---
CLOSING NOTES: PATIENT IS AWAKE AND ALERT x2 LAYING DOWN IN BED. PATIENT DENIES ANY PAIN AT THE MOMENT. PATIENT IS TOLERATING OXYGEN AT ROOM AIR WITH NO SIGNS OF DISTRESS OR SHORTNESS OF BREATH NOTED. NO IV SITE IN PLACE DUE TO PATIENT PULLING IT OUT. WILL ATTEMPT TO INSERT A NEW ONE BEFORE CHANGE OF SHIFT. PATIENT IS IN STABLE CONDITION. SAFETY, FALL, AND ASPIRATION PRECAUTIONS REMAINED IN PLACE THROUGHOUT THE SHIFT. BED IS LOCKED IN LOWEST POSITION WITH CALL LIGHT IN REACH. WILL ENDORSE PATIENT CARE TO ONCOMING TOBACCO CLASSER NURSE. Addendum: 12/22/19 at 1915 by Zoe Blunt RN UNABLE TO INSERT A NEW IV. WILL ENDORSE TO TOBACCO CLASSER NURSE.
[2019-12-22 20:00] VITALS: BP_SYST 159
[2019-12-23] MEDS: NACL 0.9% 1,000 ML IV SCH ×3 (00:49→19:21)
--- NOTE | 2019-12-23 06:10 | NUR ---
Patient in bed. No acute distress noted. Turned repositioned q2. Will continue to monitor.
--- NOTE | 2019-12-23 07:30 | NUR ---
OPENING NOTES: RECEIVED PATIENT FROM DYE HOUSE WHEEL OPERATOR NURSE. PATIENT IS ASLEEP LAYING DOWN IN BED. PATIENT IS TOLERATING OXYGEN AT ROOM AIR WITH NO SIGNS OF DISTRESS OR SHORTNESS OF BREATH NOTED. IV SITE IS INTACT WITH NO SIGNS OF INFILTRATION NOTED AND RUNNING FLUIDS ORDERED. PATIENT IN STABLE CONDITION. SAFETY, FALL, AND ASPIRATION PRECAUTIONS ARE IN PLACE. BED IS LOCKED IN LOWEST POSITION WITH CALL LIGHT IN REACH. WILL CONTINUE OT MONITOR PATIENT FOR ANY CHANGES.
[2019-12-23 08:04] VITALS: BP_SYST 145
[2019-12-23] MEDS: CHOLECALCIFEROL (VITAMIN D3) 2,000 UNIT TABLET PO SCH (08:26)
[2019-12-23] MEDS: FAMOTIDINE 20 MG TABLET PO SCH ×2 (08:26→20:21)
[2019-12-23] MEDS: ASPIRIN 81 MG TABLET(ECOTRIN) PO SCH (08:26)
[2019-12-23] MEDS: FOLIC ACID 1 MG TABLET PO SCH (08:26)
[2019-12-23] MEDS: POTASSIUM CHLORIDE 20 MEQ TAB.PRT.SR PO SCH (08:26)
[2019-12-23] MEDS: THIAMINE HCL 100 MG TABLET PO SCH (08:26)
[2019-12-23] MEDS: TAMSULOSIN HCL 0.4 MG CAP PO SCH (08:26)
--- NOTE | 2019-12-23 10:30 | NUR ---
RN ROUNDS: PATIENT IS ASLEEP LAYING DOWN IN BED. NO SIGNS OF DISTRESS OR SHORTNESS OF BREATH NOTED. PATIENT IN STABLE CONDITION. WILL CONTINUE TO MONITOR PATIENT FOR ANY CHANGES.
--- NOTE | 2019-12-23 11:09 | NUR ---
LATE ENTRY: DCP followed up on fax to [facility] DCP spoke to Caprice in admissions ([phone]) pt [facility] Addendum: 12/23/19 at 1201 by Nicole Layton DP DCP spoke to daughter regarding [facility] (p [phone]) [facility], patients daughter Sue [phone] approved of patient gonig to facility Addendum: 12/23/19 at 1250 by Nicole Layton DP Shelbie from [facility] (p [phone]) [facility], transportation was set up by Shelbie with [employer] [employer] [phone] with Jose Carlos 6:00pm P/U. Nurse made aware patient packet taken to nurse station. Addendum: 12/23/19 at 1342 by Nicole Layton DP IRIS made Sue patients daughter aware of transport time. Addendum: 12/23/19 at 1652 by Nicole Layton DP CHANGE IN TRANS COMPANY: [facility] ([phone]) correcting transport [employer] [phone]. IRIS made nurse aware.
--- NOTE | 2019-12-23 11:19 | NUR ---
DC Planning: Cm s/w pt's dtr/Sue /said she spoke with [facility] sales representative yesterday and agreed for pt transfer the the facility. Also [facility] snf ( a sister facility) also accepting. kelly Rivera will discuss with Sue for her snf preference.
--- NOTE | 2019-12-23 12:02 | NUR ---
RN ROUNDS: PATIENT IS ASLEEP LAYING DOWN IN BED. FAMILY AT BEDSIDE. NO SIGNS OF DISTRESS OR SHORTNESS OF BREATH NOTED. PATIENT IN STABLE CONDITION. WILL CONTINUE TO MONITOR PATIENT FOR ANY CHANGES.
[2019-12-23 12:24] VITALS: BP_SYST 143
[2019-12-23] MEDS: cloNIDine HCL 0.1 MG TABLET PO PRN (15:31)
[2019-12-23 16:00] VITALS: BP_SYST 197
--- NOTE | 2019-12-23 16:10 | NUR ---
RN ROUNDS: PATIENT IS AWAKE AND ALERT x1 LAYING DOWN IN BED. PATIENT SEEMS CONFUSED AND KEEPS TRYING TO PULL OFF HIS GOWN. PATIENT WAS REORIENTED AND GOWN WAS PUT BACK ON. PATIENT DENIES ANY PAIN AT THE MOMENT. NO SIGNS OF DISTRESS OR SHORTNESS OF BREATH NOTED. PATIENT IN STABLE CONDITION. WILL CONTINUE TO MONITOR PATIENT FOR ANY CHANGES.
[2019-12-23] MEDS ORDERED: ATORVASTATIN 20 MG TABLET PO ONE (16:30)
[2019-12-23 16:58] LABS: BASOPHILS % (AUTO) 0.5 % (0.0-2.0); EOSINOPHILS # (AUTO) 0.2 K/uL (0.0-0.4); EOSINOPHILS % (AUTO) 4.3 % (0.0-4.0); HEMOGLOBIN 14.4 g/dL (14.0-18.0); LYMPHOCYTES # (AUTO) 1.3 K/uL (1.0-5.5); LYMPHOCYTES % (AUTO) 26.8 % (20.5-51.5); MEAN CORPUSCULAR HEMOGLOBIN 32 pg (27-31); MEAN CORPUSCULAR HGB CONC 34 % (32-36); MEAN CORPUSCULAR VOLUME 92 fL (79.0-98.0); MONOCYTES # (AUTO) 0.3 K/uL (0.0-1.0); MONOCYTES % (AUTO) 6.1 % (1.7-9.3); NEUTROPHILS % (AUTO) 62.3 % (40.0-70.0); PLATELET COUNT (AUTO) 204 K/uL (130-430); RED BLOOD CELL COUNT(AUTO) 4.55 MIL/uL (4.2-6.2); RED CELL DISTRIBUTION WIDTH 13.8 % (9.0-15.0); WHITE BLOOD COUNT (AUTO) 4.8 K/uL (4.8-10.8)
[2019-12-23] MEDS ORDERED: cloNIDine HCL 0.2 MG TABLET PO ONE (17:00)
[2019-12-23] MEDS ORDERED: amLODIPine BESYLATE 10 MG TABLET PO ONE (17:00)
[2019-12-23 17:03] LABS: ANION GAP 7 (5-15); CALCIUM 8.9 mg/dL (8.4-11.0); CHLORIDE 106 mmol/L (98-107); CREATININE 0.81 mg/dL (0.55-1.30); GLUCOSE 123 mg/dL (70-99); POTASSIUM 3.5 mmol/L (3.5-5.1); SODIUM SERUM 134 mmol/L (136-145); UREA NITROGEN, BLOOD 17 mg/dL (8-21)
[2019-12-23] MEDS: QUEtiapine FUMARATE 25 MG TABLET PO SCH (17:49)
--- NOTE | 2019-12-23 18:32 | NUR ---
CLOSING NOTES: PATIENT IS AWAKE AND ALERT x2 LAYING DOWN IN BED. FAMILY AT BEDSIDE. PATIENT DENIES ANY PAIN AT THE MOMENT. PATIENT IS TOLERATING OXYGEN AT ROOM AIR WITH NO SIGNS OF DISTRESS OR SHORTNESS OF BREATH NOTED. IV SITE INTACT AND RUNNING FLUIDS ORDERED. PATIENT IS IN STABLE CONDITION. SAFETY, FALL, AND ASPIRATION PRECAUTIONS REMAINED IN PLACE THROUGHOUT THE SHIFT. BED IS LOCKED IN LOWEST POSITION WITH CALL LIGHT IN REACH. WILL ENDORSE PATIENT CARE TO ONCOMING CLINICAL LABORATORY AIDES TEACHER NURSE.
--- NOTE | 2019-12-23 19:35 | NUR ---
ROUNDS PATIENT RESTING COMFORTABLY IN BED, NOT IN DISTRESS, VITALS STABLE NO PAIN AND DISCOMFORT NOTED AT THIS TIME. ASSESSMENT DONE AND DOCUMENTED. SEE FLOWSHEET. NEEDS ATTENDED TO. SAFETY AND FALL MEASURES IN PLACED. BED IN LOW AND LOCKED POSITION. CALL LIGHT LACED WITHIN REACH.
[2019-12-23] MEDS ORDERED: cloNIDine HCL 0.2 MG TABLET PO PRN ×2 (20:30→21:00)
[2019-12-23] MEDS ORDERED: DOXAZOSIN MESYLATE 2 MG TABLET PO SCH (21:00)
--- NOTE | 2019-12-23 21:14 | NUR ---
MEDICATION DUE MEDICATIONS GIVEN SCHEDULED, TOLERATED WELL. WILL CONTINUE TO MONITOR.
[2019-12-24] VITALS: BP_SYST 146
--- NOTE | 2019-12-24 00:29 | NUR ---
ROUNDS PATIENT ASLEEP, VITALS STABLE, NO SIGNS OF ANY PAIN AND DISCOMFORT NOTED. WILL CONTINUE TO MONITOR.
--- NOTE | 2019-12-24 02:16 | NUR ---
PATIENT RESTING: Patient resting quietly. No acute distress noted. Vital signs within normal range.
--- NOTE | 2019-12-24 04:12 | NUR ---
ROUNDS PATIENT ASLEEP, RESPIRATIONS EVEN AND UNLABORED, WILL CONTINUE TO MONITOR.
--- NOTE | 2019-12-24 06:34 | NUR ---
CLOSING NOTES PATIENT AWAKE, NO SOB NOR PAIN AND DISCOMFORT NOTED. ALL NEEDS ATTENDED TO. SAFETY AND FALL MEASURES MAINTAINED. CALL LIGHT PLACED WITHIN REACH.
[2019-12-24 07:33] LABS: BASOPHILS % (AUTO) 0.6 % (0.0-2.0); EOSINOPHILS # (AUTO) 0.2 K/uL (0.0-0.4); EOSINOPHILS % (AUTO) 4.2 % (0.0-4.0); HEMATOCRIT 41.9 % (36-54); HEMOGLOBIN 14.2 g/dL (14.0-18.0); LYMPHOCYTES # (AUTO) 1.6 K/uL (1.0-5.5); LYMPHOCYTES % (AUTO) 28.3 % (20.5-51.5); MEAN CORPUSCULAR HEMOGLOBIN 31 pg (27-31); MEAN CORPUSCULAR HGB CONC 34 % (32-36); MEAN CORPUSCULAR VOLUME 92 fL (79.0-98.0); MONOCYTES # (AUTO) 0.5 K/uL (0.0-1.0); MONOCYTES % (AUTO) 8.1 % (1.7-9.3); NEUTROPHILS # (AUTO) 3.3 K/uL (1.8-7.7); NEUTROPHILS % (AUTO) 58.8 % (40.0-70.0); PLATELET COUNT (AUTO) 183 K/uL (130-430); RED BLOOD CELL COUNT(AUTO) 4.53 MIL/uL (4.2-6.2); RED CELL DISTRIBUTION WIDTH 13.7 % (9.0-15.0); WHITE BLOOD COUNT (AUTO) 5.7 K/uL (4.8-10.8)
--- NOTE | 2019-12-24 07:38 | NUR ---
OPENING NOTE Patient resting in the bed. No acute distress. Denied of pain. Skin warm and dry to touch. IV intact to LAC, no redness, no swelling, no drainage. On NS at 50ml/hr, infusing well. Safety measure maintained. Call light within reached. Bed locked in low position, side rails up, bed alarm on. Will continue to monitor.
[2019-12-24 07:47] LABS: ALANINE AMINOTRANSFERASE 41 U/L (12-78); ALBUMIN 2.8 g/dL (3.4-4.8); ANION GAP 11 (5-15); ASPARTATE AMINOTRANSFERASE 31 U/L (10-37); CALCIUM 9.2 mg/dL (8.4-11.0); CHLORIDE 107 mmol/L (98-107); CREATININE 0.84 mg/dL (0.55-1.30); GLUCOSE 110 mg/dL (70-99); POTASSIUM 3.6 mmol/L (3.5-5.1); SODIUM SERUM 140 mmol/L (136-145); TOTAL BILIRUBIN 0.5 mg/dL (0.0-1.0)
[2019-12-24 07:55] VITALS: BP_SYST 139
[2019-12-24 07:56] LABS: UREA NITROGEN, BLOOD 19 mg/dL (8-21)
--- NOTE | 2019-12-24 08:08 | NUR ---
PHYSICAL THERAPY CO-SIGN The Physical Therapy Progress Notes documented by Chip Drier have been reviewed. Reviewed/Co-Signed by: Erlin Marie PT Documentation Done by: AKILA MCKINLEY PTA Addendum: 12/24/19 at 0810 by Erlin Marie PT Amended: Links added.
--- NOTE | 2019-12-24 08:09 | NUR ---
PHYSICAL THERAPY CO-SIGN The Physical Therapy Progress Notes documented by Stereo Equipment Installer have been reviewed. Reviewed/Co-Signed by: Erlin Marie PT Documentation Done by: AKILA MCKINLEY PTA Addendum: 12/24/19 at 0810 by Erlin Marie PT Amended: Links added.
[2019-12-24] MEDS: FAMOTIDINE 20 MG TABLET PO SCH (08:22)
[2019-12-24] MEDS: FOLIC ACID 1 MG TABLET PO SCH (08:22)
[2019-12-24] MEDS: ASPIRIN 81 MG TABLET(ECOTRIN) PO SCH (08:23)
[2019-12-24] MEDS: POTASSIUM CHLORIDE 20 MEQ TAB.PRT.SR PO SCH (08:23)
[2019-12-24] MEDS: CHOLECALCIFEROL (VITAMIN D3) 2,000 UNIT TABLET PO SCH (08:23)
[2019-12-24] MEDS: TAMSULOSIN HCL 0.4 MG CAP PO SCH (08:23)
[2019-12-24] MEDS: THIAMINE HCL 100 MG TABLET PO SCH (08:23)
--- NOTE | 2019-12-24 08:28 | NUR ---
AM SCHEDULE MED GIVEN, TOLERATED WELL.
[2019-12-24] MEDS ORDERED: amLODIPine BESYLATE 10 MG TABLET PO SCH (09:00)
[2019-12-24] MEDS ORDERED: ATORVASTATIN 20 MG TABLET PO SCH (09:00)
--- NOTE | 2019-12-24 10:47 | NUR ---
ROUND Patient resting in the bed. No acute distress. IV intact, IVF infusing well. Safety measure maintained. Safety measure maintained. Bed locked in low position, side rails up, bed alarm on. Call light within reached. Continue to monitor.
--- NOTE | 2019-12-24 11:35 | NUR ---
[id number] No insulin coverage needed per sliding scale as order.
[2019-12-24 12:00] VITALS: BP_SYST 162
--- NOTE | 2019-12-24 13:55 | NUR ---
ROUND Patient resting in the bed and watching TV. No acute distress. IV intact, IVF infusing well. Safety measure maintained. Safety measure maintained. Call light within reached. Bed locked in low position, side rails up, bed alarm on. Continue to monitor.
--- NOTE | 2019-12-24 15:08 | NUR ---
TX=[id number] Catapres 0.2mg PO given as ordered. Patient resting in the bed. No acute distress. Safety measure maintained. Call light within reached. Bed locked in low position, side rails up, bed alarm on. Continue to monitor.
[2019-12-24 16:30] VITALS: BP_SYST 148
--- NOTE | 2019-12-24 16:30 | NUR ---
RECHECKED B/P=148/84 Patient resting in the bed. No acute distress. IV intact, IVF infusing well. Safety measure maintained. Call light within reached. Bed locked in low position, side rails up, bed alarm on. Continue to monitor.
[2019-12-24 17:15] VITALS: BP_SYST 148
--- NOTE | 2019-12-24 17:20 | NUR ---
REPORT GIVEN TO NONA Wiley IN [facility].
[2019-12-24] MEDS: QUEtiapine FUMARATE 25 MG TABLET PO SCH (17:45)
--- NOTE | 2019-12-24 17:45 | NUR ---
GC=[id number] No insulin coverage needed per sliding scale as order.
--- NOTE | 2019-12-24 19:20 | NUR ---
PT TRANSFERRED Report given to NONA Moore at 1720. Transfer packet with Transfer Orders and Medication Reconciliation form given to EMT with report. Exitcare provided. [facility] ID band removed, replaced with ID band with pt's name and . IV catheter removed, intact and dressing applied, no active bleeding. All belongings sent with patient. Patient left floor via gurney escorted by EMT in no distress.
--- NOTE | 2019-12-24 19:25 | NUR ---
CALLED PATIENT'S DAUGHTERVIRGILIO FOR THE PATIENT TRANSFERRED.
== END 2019-12-24 19:20 | DRG 64 ==
LOC: SED 15:14 → STU 17:12 → SMU 12-21 18:54 → STU 12-23 20:25
PROVIDERS: ADMIT Internal Medicine; ATTEND Internal Medicine
DX: I63.9 Cerebral infarction, unspecified (principal); I21.A1 Myocardial infarction type 2; N17.0 Acute kidney failure with tubular necrosis; F23 Brief psychotic disorder; G81.94 Hemiplegia, unspecified affecting left nondominant side; G93.40 Encephalopathy, unspecified; E78.5 Hyperlipidemia, unspecified; E86.0 Dehydration; Z96.649 Presence of unspecified artificial hip joint; I10 Essential (primary) hypertension; E87.6 Hypokalemia; K70.30 Alcoholic cirrhosis of liver without ascites; K80.20 Calculus of gallbladder without cholecystitis without obstruction; E11.42 Type 2 diabetes mellitus with diabetic polyneuropathy; F10.97 Alcohol use, unspecified with alcohol-induced persisting dementia; Y90.9 Presence of alcohol in blood, level not specified; S70.02XA Contusion of left hip, initial encounter; W18.39XA Other fall on same level, initial encounter; Y93.89 Activity, other specified; Z91.14 Patient's other noncompliance with medication regimen; Z79.4 Long term (current) use of insulin; Y92.89 Other specified places as the place of occurrence of the external cause; Y99.8 Other external cause status
CPT/HCPCS: 36415; 70450-TC; 70551; 71045; 73521; 73552; 76700-TC; 80048; 80053; 80061; 80307; 81000-TC; 82140-TC; 82962; 83036; 83605; 83735-TC; 84100-TC; 84153; 84439; 84443-TC; 84484; 85025; 85610-TC; 85730-TC; 87040-TC; 87086; 93005; 93306; 93880; 96361; 96365; 96375; 97110-GP; 97112-GP; 97530-GP; 99285; G0378; G0482; J1630; J1815; J2060; J2270; J3411; J3490; J7030; J7120; Q9967